=== PATIENT | female | born 1945 | race Caucasian/White ===

== ENCOUNTER 2016-10-13 11:35 | Emergency (ER) | payer OTHER ==
[~2016-10-13] VITALS: Ht 154.9 cm; Wt 88.9 kg
[2016-10-13 11:38] VITALS: BP 129/79
--- NOTE | 2016-10-13 11:38 | NUR ---
EKG completed by EMT in triage room.
[2016-10-13] MEDS ORDERED: ASPIRIN 81 MG TAB.CHEW PO ONE (11:40)
[2016-10-13 12:00] LABS: EOSINOPHILS # (AUTO) 0.4 K/uL (0-0.4)
[2016-10-13] MEDS ORDERED: ATOR10TA PO (12:02)
[2016-10-13] MEDS ORDERED: ELA50 PO (12:02)
[2016-10-13] MEDS ORDERED: TRAM50TA94 PO (12:02)
[2016-10-13] MEDS ORDERED: ALBU0.0912 IH (12:02)
[2016-10-13] MEDS ORDERED: DULO20EC PO (12:02)
[2016-10-13] MEDS ORDERED: AMLO5TAB PO (12:02)
[2016-10-13] MEDS ORDERED: METF500T PO (12:02)
[2016-10-13] MEDS ORDERED: ATEN25TA7 PO (12:02)
[2016-10-13] MEDS ORDERED: HYDR-3424 PO (12:02)
[2016-10-13] MEDS ORDERED: ACET-2858 PO (12:02)
[2016-10-13] MEDS ORDERED: ASPI325E46 PO (12:02)
[2016-10-13 12:06] LABS: BASOPHILS # (AUTO) 0.2 K/uL (0.00-0.22); BASOPHILS % (AUTO) 1.8 % (0.0-2.0); EOSINOPHILS % (AUTO) 3.8 % (0.0-4.0); HEMATOCRIT 44.5 % (36-48); HEMOGLOBIN 14.3 g/dL (12.0-16.0); LYMPHOCYTES # (AUTO) 3.1 K/uL (2.5-16.5); MEAN CORPUSCULAR HEMOGLOBIN 27 pg (27-31); MEAN CORPUSCULAR HGB CONC 32 g/dL (33-37); MEAN CORPUSCULAR VOLUME 83 fL (80-94); MONOCYTES # (AUTO) 0.5 K/uL (0.8-1.0); MONOCYTES % (AUTO) 5.1 % (1.7-9.3); NEUTROPHILS # (AUTO) 6.4 K/uL (1.8-7.7); NEUTROPHILS % (AUTO) 60.3 % (42.2-75.2); PLATELET COUNT (AUTO) 313 K/uL (140-450); RED BLOOD CELL COUNT(AUTO) 5.33 MIL/uL (4.20-5.40); RED CELL DISTRIBUTION WIDTH 14.6 % (11.6-13.7); WHITE BLOOD COUNT (AUTO) 10.6 K/uL (4.8-10.8)
[2016-10-13 12:18] LABS: INR 1.1 (0.8-1.2); PROTHROMBIN TIME 10.3 secs (10.8-13.4)
--- NOTE | 2016-10-13 12:24 | NUR ---
PATIENT PRESENTS TO ED WITH SOB . PT STATES HER SOB STARTED 4 DAYS AGO BUT INCREASED SINCE YESTERDAY . DENIES N/V/D; SKIN IS PINK/WARM/DRY; AAOX4 WITH EVEN AND STEADY GAIT; LUNGS WHEEZES BL PT DENIES ANY FEVER, CP; PATIENT STATES PAIN OF 0/10 AT THIS TIME; VSS; PATIENT POSITIONED FOR COMFORT; HOB ELEVATED; BEDRAILS UP X1; BED DOWN. ER MD MADE AWARE OF PT STATUS.
[2016-10-13 12:31] LABS: ALANINE AMINOTRANSFERASE 18 U/L (12-78); ALBUMIN 3.5 g/dL (3.4-5.0); ALKALINE PHOSPHATASE 100 U/L (46-116); ANION GAP 13.9 (8-16); ASPARTATE AMINOTRANSFERASE 17 U/L (15-37); CALCIUM 8.8 mg/dL (8.5-10.1); CARBON DIOXIDE 28.4 mmol/L (21-32); CHLORIDE 102 mmol/L (98-107); CREATININE 1.1 mg/dL (0.6-1.3); GLUCOSE 158 mg/dL (74-106); POTASSIUM 4.3 mmol/L (3.5-5.1); SODIUM SERUM 140 mmol/L (136-145); TOTAL BILIRUBIN 0.4 mg/dL (0.0-1.0); UREA NITROGEN, BLOOD 20 mg/dL (7-18)
[2016-10-13 12:41] LABS: PARTIAL THROMBOPLASTIN TIME > 150.0 secs (22-35.6)
--- NOTE | 2016-10-13 12:50 | NUR ---
DR FARIA AT BEDSIDE
--- NOTE | 2016-10-13 13:07 | NUR ---
Patient discharged with v/s stable. Written and verbal after care instructions given and explained. Patient alert, oriented and verbalized understanding of instructions. Ambulatory with steady gait. All questions addressed prior to discharge. ID band removed. Patient advised to follow up with PMD. Rx of PREDNISONE given. Patient educated on indication of medication including possible reaction and side effects. Opportunity to ask questions provided and answered. IV D/C NO ACTIVE BLEEDING, SITE COVERED WITH BANDAID
[2016-10-13 13:09] VITALS: BP 156/81
== END 2016-10-13 13:07 | disposition home or self-care (01) ==
LOC: MED 11:35
DX: I48.91 Unspecified atrial fibrillation (principal); J45.909 Unspecified asthma, uncomplicated; E11.9 Type 2 diabetes mellitus without complications; I10 Essential (primary) hypertension; Z90.49 Acquired absence of other specified parts of digestive tract; Z98.890 Other specified postprocedural states; Z79.82 Long term (current) use of aspirin; Z79.899 Other long term (current) drug therapy
CPT/HCPCS: 36415; 71010; 80053; 83880; 84484; 85025; 85610; 85730; 93005; 99285; Q0092